=== PATIENT | female | born 1955 | race Caucasian/White ===

== ENCOUNTER 2018-01-24 11:11 | Emergency (ER) | payer BC ==
--- NOTE | 2018-01-24 11:33 | CPEKG ---
Heart Rate: 67 RR Interval: 896 P-R Interval: 152 QRSD Interval: 90 QT Interval: 412 QTC Interval: 435 P [place]: 55 QRS [place]: -32 T Wave [place]: 18 EKG Severity - BORDERLINE ECG - EKG Impression: SINUS RHYTHM EKG Impression: LEFT AXIS DEVIATION EKG Impression: CONSIDER ANTERIOR INFARCT Electronically Signed By: Vivien Guthrie 24-Jan-2018 15:12:37
[2018-01-24 11:47] LABS: PLATELET COUNT 249 10^3/uL (150-400)
--- NOTE | 2018-01-24 12:31 | EDPHY ---
H & P Stated Complaint: rapid, irregular hr last night Time Seen by Provider: 01/24/18 11:52 HPI/ROS: CHIEF COMPLAINT: Irregular heartbeat HISTORY OF PRESENT ILLNESS: 63-year-old female presents with an irregular heartbeat. She awoke at 3:00 a.m. to go to the restroom. When she got back in bed, she had sudden onset of a rapid irregular heartbeat. Irregular heartbeat lasted 2 hr and then spontaneously resolved. No alleviating or aggravating factors. No associated symptoms and no prior similar episodes. 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 Currently feels back to normal. REVIEW OF SYSTEMS: complete 10 point ROS negative except at noted in the HPI - Personal History Current Tetanus/Diphtheria Vaccine: Yes Current Tetanus Diphtheria and Acellular Pertussis (TDAP): Yes - Medical/Surgical History Hx Asthma: No Hx Chronic Respiratory Disease: No Hx Diabetes: No Hx Cardiac Disease: No Hx Renal Disease: No Hx Cirrhosis: No Hx Alcoholism: No Hx HIV/AIDS: No Hx Splenectomy or Spleen Trauma: No Other PMH: thyroidectomy, hs, TMJ surgery, pit ad - Social History Smoking Status: Never smoked Drug Use: None - Physical Exam Exam: General Appearance: Alert, pleasant Eyes: Pupils equal and round, no conjunctival pallor or injection ENT, Mouth: Mucous membranes moist Neck: Normal inspection Respiratory: Lungs are clear to auscultation Cardiovascular: Regular rate and rhythm Gastrointestinal: Abdomen is soft and nontender Neurological: A&O, nonfocal, normal gait Skin: Warm and dry, no rash Extremities: Nontender, no pedal edema Psychiatric: Mood and affect normal Constitutional: Initial Vital Signs Temperature (C) 37.3 C 01/24/18 11:20 Heart Rate 68 01/24/18 11:20 Respiratory Rate 18 01/24/18 11:20 Blood Pressure 163/89 H 01/24/18 11:20 O2 Sat (%) 98 01/24/18 11:20 O2 Delivery Mode Room Air Allergies/Adverse Reactions: erythromycin base Allergy (Verified 01/24/18 11:25) Sulfa (Sulfonamide Antibiotics) Allergy (Verified 01/24/18 11:25) Home Medications: Medication Instructions Recorded Levothyroxine 01/24/18 Medical Decision Making - Diagnostics EKG Interpretation: EKG interpreted by me reveals normal sinus rhythm, rate 67, LAD, poor R-wave progression. Interpretation: Borderline EKG. Imaging Results: Chest x-ray independently reviewed by me reveals no acute disease. ED Course/Re-evaluation: This patient presents after an episode of rapid irregular heart rate, likely atrial fibrillation. Emergency department evaluation is unremarkable, including labs, chest x-ray and EKG. quality assurance monitor body reveals normal sinus rhythm throughout. The patient will follow up with Cardiology for consideration of Holter monitoring. Will start taking a baby aspirin daily. Differential Diagnosis: Differential diagnosis includes does not limited to SVT, atrial fibrillation, sinus tachycardia, ventricular dysrhythmia, thyrotoxicosis. - Data Points Laboratory Results: Laboratory Results 01/24/18 11:35 01/24/18 11:35 Departure - Departure Disposition: Home, Routine, Self-Care Clinical Impression: Palpitations Condition: Good Instructions: Heart Palpitations (ED) Additional Instructions: Call this evening or in the morning for thyroid test results. Return for recurrent symptoms or any concerns. Referrals: NEPTALI MARTINS [Other] - As per Instructions Kashmir Dial MD [Medical Doctor] - As per Instructions (Call Dr. Dial to make an appointment.)
[2018-01-24 12:42] VITALS: BP 115/76
== END 2018-01-24 12:40 | disposition home or self-care (01) ==
DX: R00.2 Palpitations (principal)